=== PATIENT | male | born 1965 | race Caucasian/White ===

== ENCOUNTER → 2023-04-08 | Outpatient (CLI) | payer BC ==
--- NOTE | 2023-04-08 09:41 | Diagnostic Imaging Report ---
CLINICAL INDICATION: Patient with numbness and left forearm x3 months now. EXAM: MRI of the cervical spine performed without IV contrast. Sequences include sagittal T2, sagittal T1, sagittal T2 fat-sat, and axial T2. COMPARISONS: None. FINDINGS: There is no acute cervical spine fracture. There is Modic type I degenerative signal changes involving the C4-C5 and C5-C6 endplates. Limited visualization of posterior fossa is unremarkable. There is localized encroachment upon the cervical cord seen at the C3-C4, C4-C5, C5-C6 levels with no abnormal cord signal. There is no significant paraspinal soft tissue abnormality. There are moderate to severely hypertrophic spurs involving the C3-C7 levels. There is facet arthropathy/hypertrophy. C1-C2: There are degenerative spurs involving the atlantoodontoid interval anteriorly. There is no significant central canal stenosis. C2-C3: There is moderate right facet arthropathy and mild left facet arthropathy. There is [id number] left neural foramen narrowing and no significant right neural foramen narrowing. There is no significant central canal stenosis. C3-C4: There is a diffuse disk bulge. There is severe left facet arthropathy/hypertrophy. There is mild right facet arthropathy. There are bilateral uncinate spurs. There is severe left neural foramen narrowing and moderate to severe right neural foramen narrowing. There is moderate central canal stenosis. There is mild loss of disk space height. C4-C5: There is a diffuse disk bulge with moderate loss of disk space height. There are bilateral uncinate spurs. There is severe left facet arthropathy and mild to moderate right facet arthropathy. There is severe central canal stenosis and severe bilateral neural foramen narrowing. C5-C6: There is a diffuse disk bulge with severe loss of disk space height and bilateral uncinate spurs. There is severe central canal stenosis and severe bilateral neural foramen narrowing. There is mild bilateral facet arthropathy. There is ligamentum flavum buckling. C6-C7: There is diffuse disk bulge with moderate to severe loss of disk space height and bilateral uncinate spurs. There is ligamentum flavum buckling. There is moderate to severe central canal stenosis. There is severe left neural foramen narrowing and [id number] right neural foramen narrowing. C7-T1: There is grade 1 anterolisthesis C7 on T1. There is a small right paracentral disk extrusion/herniation with roughly 4 mm of cephalad disk migration. There is moderate right facet arthropathy and severe left facet arthropathy. There is ligamentum flavum buckling. There is mild central canal stenosis. There is moderate to severe bilateral neural foramen narrowing. IMPRESSION: 1: There is no acute cervical spine fracture. 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 3: There are areas of encroachment upon the cervical cord deformity to degenerative disease seen at the C3-C6 levels with no abnormal cord signal seen. Dictated by: Dictated on workstation # [id number]
== END ==
LOC: RAD 08:01
PROVIDERS: ATTEND Family Medicine
DX: M50.31 Other cervical disc degeneration, high cervical region (principal); M50.321 Other cervical disc degeneration at C4-C5 level; M50.322 Other cervical disc degeneration at C5-C6 level; M50.323 Other cervical disc degeneration at C6-C7 level
CPT/HCPCS: 72141